=== PATIENT | female | born 1980 | race Caucasian/White ===

== ENCOUNTER 2016-11-03 00:07 | Emergency (ER) | payer OTHER ==
[~2016-11-03 00:07] MED LIST: CALCIUM500 M1 PO; IBUPROFEN800 M1 PO; MOTRIN800 MG PO; NORCO 5-325 TA1 EACH PO; NORCO 5/3251 TAB PO; NUPERCAINAL30 GM RC; PRENATAL1 TAB PO
[2016-11-03] MEDS ORDERED: ERRIN0.35 M1 PO (00:16)
[2016-11-03] MEDS ORDERED: BENADRYL25 M3 PO (00:16)
[2016-11-03] MEDS ORDERED: ZYRTEC10 M7 PO ×2 (00:16→00:27)
[2016-11-03] MEDS ORDERED: FLONASE ALLERG9.9 ML ×2 (00:16→00:27)
[2016-11-03] MEDS ORDERED: PREDNISONE20 M1 PO (02:42)
[2017-01-27] MEDS ORDERED: METOPROLOL TART25 M1 PO (08:01)
[2017-01-27] MEDS ORDERED: IBUPROFEN800 M1 PO (08:02)
[2017-01-27] MEDS ORDERED: NORCO 5/3251 TAB PO (10:10)
== END 2016-11-03 03:01 ==
LOC: EDMED 00:07
DX: T78.40XA Allergy, unspecified, initial encounter (principal); L50.9 Urticaria, unspecified; L55.9 Sunburn, unspecified; Z87.891 Personal history of nicotine dependence; Z98.890 Other specified postprocedural states
CPT/HCPCS: J0171; J1100; J1200; J2060